=== PATIENT | male | born 1935 | race Hispanic/Latino ===

== ENCOUNTER 2017-01-28 11:35 | Emergency (ER) | payer MEDICARE, OTHER ==
[2017-01-28] MEDS ORDERED: Sodium Chloride 0.9% 1,000 ML IV ONE (12:04)
[2017-01-28 12:06] VITALS: RESP 18
[2017-01-28 12:28] LABS: BASO % 0.5 % (0.0-2.0); EOS # 0.1 K/uL (0.0-0.7); EOS % 1.1 % (0.0-4.0); HEMATOCRIT 37.8 % (35.0-51.0); LYMPH # 1.9 K/uL (1.0-4.3); LYMPH % 24.4 % (20.0-40.0); MEAN CELL VOLUME 93.8 fL (80.0-94.0); MEAN CORPUSCULAR HEMOGLOBIN 30.6 pg (27.0-31.0); MEAN CORPUSCULAR HGB CONC 32.6 g/dL (33.0-37.0); MEAN PLATELET VOLUME 8.6 fL (7.2-11.7); MONO # 0.5 K/uL (0.0-0.8); MONO % 6.8 % (0.0-10.0); RED CELL DISTRIBUTION WIDTH 13.3 % (11.5-14.5); WHITE BLOOD COUNT 7.9 K/uL (4.8-10.8)
[2017-01-28 12:36] LABS: INR 1.1
--- NOTE | 2017-01-28 12:39 | C.PDOC ---
History Of Present Illness 81 year old patient, with a past medical history of hypertension and hypercholesterolemia, presents to the ED complaining of dizziness for the past week. Patient states he feels dizzy when he is walking. It causes him to feel off balance. Patient denies headache, numbness, weakness, visual changes, shortness of breath, chest pain, nausea, vomiting, change in appetite, change in medications, or passing out. Patient was seen by his PMD today and sent him to the ED for further evaluation. Time Seen by Provider: 01/28/17 11:59 Chief Complaint (Nursing): Dizziness/Lightheaded History Per: Patient History/Exam Limitations: no limitations Onset/Duration Of Symptoms: Other (1 week) Current Symptoms Are (Timing): Still Present Activity At Onset Of Symptoms: Walking Associated Symptoms Preceding Syncopal Episode: No Predromal Symptoms (Sudden Onset) Fall Associated With With Symptoms: No Severity: Mild Recent travel outside of the [place]: No Past Medical History Reviewed: Historical Data, Nursing Documentation, Vital Signs Vital Signs: Last Vital Signs Temp 98.1 F 01/28/17 14:01 Pulse 58 L 01/28/17 14:01 Resp 18 01/28/17 14:01 BP 157/71 H 01/28/17 14:01 Pulse Ox 99 01/28/17 14:01 - Medical History PMH: HTN, Hypercholesterolemia Family History: States: Unknown Family Hx - Social History Hx Alcohol Use: No Hx Substance Use: No - Immunization History Hx Tetanus Toxoid Vaccination: No Hx Influenza Vaccination: No Review Of Systems Except As Marked, All Systems Reviewed And Found Negative. Cardiovascular: Negative for: Chest Pain Respiratory: Negative for: Shortness of Breath Gastrointestinal: Negative for: Nausea, Vomiting Neurological: Positive for: Dizziness. Negative for: Weakness, Numbness, Altered Mental Status, Headache, Other (syncope) Physical Exam - Physical Exam Appears: Non-toxic, No Acute Distress Skin: Warm, Dry Head: Atraumatic, Normacephalic Eye(s): bilateral: Normal Inspection, EOMI, Other ((-)nystagmus) Ear(s): Bilateral: Normal Nose: Normal Oral Mucosa: Moist Throat: Normal Neck: Normal ROM, Supple Chest: Symmetrical Cardiovascular: Rhythm Regular Respiratory: Normal Breath Sounds, No Rales, No Rhonchi, No Wheezing Gastrointestinal/Abdominal: Soft, No Tenderness, Other (obese) Back: Normal Inspection, No CVA Tenderness Extremity: Normal ROM Neurological/Psych: Oriented x3, Normal Speech, Normal Cognition, Normal Cranial Nerves, No Cerebellar Signs, Normal Motor, Normal Sensation Gait: Steady ED Course And Treatment - Laboratory Results Result Diagrams: 01/28/17 12:13 01/28/17 12:13 Lab Interpretation: No Acute Changes ECG: Interpreted By Me, Viewed By Me ECG Rhythm: Sinus Bradycardia ECG Interpretation: No Acute Changes Rate From EC (bpm) O2 Sat by Pulse Oximetry: 98 (room air) Pulse Ox Interpretation: Normal - Radiology CXR: Read By Radiologist (Benton Altamirano MD) CXR Interpretation: Yes: No Acute Disease - CT Scan/US Head CT Other Rad Studies (CT/US): Read By Radiologist (Benton Altamirano MD), Radiology Report Reviewed CT/US Interpretation: PROCEDURE: CT HEAD WITHOUT CONTRAST. HISTORY: dizziness for one week. COMPARISON: None available. TECHNIQUE: Axial computed tomography images were obtained through the head/brain without intravenous contrast. Radiation dose: Total exam DLP = 993.76 mGy-cm. This CT exam was performed using one or more of the following dose reduction techniques: Automated exposure control, adjustment of the mA and/or kV according to patient size, and/or use of iterative reconstruction technique. FINDINGS: HEMORRHAGE: No intracranial hemorrhage. BRAIN: Low-attenuation area at adjacent to the anterior horn of the left lateral ventricle likely lacune or infarct. Symmetrical periventricular small vessel disease. Age related senescent change. VENTRICLES: Unremarkable. No hydrocephalus. CALVARIUM: Unremarkable. PARANASAL SINUSES: Unremarkable as visualized. No significant inflammatory changes. MASTOID AIR CELLS: Unremarkable as visualized. No inflammatory changes. OTHER FINDINGS: None. 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 No evidence of acute parenchymal hemorrhage or other pathologic process. Medical Decision Making Medical Decision Making: Impression: 81 y/o male with dizziness for one week, intermittent episodes Plan: * EKG * Head CT * Labs * Chest x-ray * Antivert, IV fluids Progress: EKG obtained and reviewed with no acute changes Head CT shows no evidence of acute parenchymal hemorrhage or other pathologic process. Patient remained afebrile, alert and oriented in no distress. Upon reevaluation patient reports feeling better and dizziness has resolved. Patient is ambulatory in ED with steady gait and no discomfort. Patient stable and agrees to plan for discharge, he does not wish to stay in hospital. Will discharge with Rx and advise follow up with PCP or return for any worsening symptoms Disposition Counseled Patient/Family Regarding: Diagnosis, Need For Followup, Rx Given - Disposition Referrals: Benny Holland MD [Staff Provider] - Disposition: HOME/ ROUTINE Disposition Time: 13:20 Condition: IMPROVED Additional Instructions: Your prescription was sent to pharmacy Please take Antivert every 8 hours as needed for dizziness Your labs and CT scan were normal Follow up with your primary medical doctor Return to the emergency department at any time if symptoms persist or worsen. Prescriptions: Meclizine [Meclizine*] 25 mg PO Q6 #30 tab Instructions: Dizziness (ED) - POA Present On Arrival: None - Clinical Impression Clinical Impression: Dizziness - PA / HOUSE RN / Resident Statement MD/DO has reviewed & agrees with the documentation as recorded. - Scribe Statement The provider has reviewed the documentation as recorded by the Scribe Jo Marina All medical record entries made by the Scribe were at my direction and personally dictated by me. I have reviewed the chart and agree that the record accurately reflects my personal performance of the history, physical exam, medical decision making, and the department course for this patient. I have also personally directed, reviewed, and agree with the discharge instructions and disposition.
[2017-01-28 12:47] LABS: CHLORIDE 101 mmol/L (98-107); POTASSIUM 4.5 mmol/L (3.6-5.2); SODIUM 142 mmol/L (132-148)
[2017-01-28 12:50] LABS: ALB/GLOB RATIO 1.3 (1.0-2.1); ALKALINE PHOSPHATASE 50 U/L (38-126); ALT/SGPT 27 U/L (21-72); AST/SGOT 29 U/L (17-59); BILIRUBIN,TOTAL 0.5 mg/dL (0.2-1.3); BLOOD UREA NITROGEN 28 mg/dL (9-20); CARBON DIOXIDE 29 mmol/L (22-30); GFR AFRICAN-AMERICAN > 60; GLUCOSE,RANDOM 80 mg/dL (75-110); TOTAL PROTEIN 7.2 g/dL (6.3-8.3)
[2017-01-28 12:51] LABS: CALCIUM 8.5 mg/dl (8.6-10.4)
--- NOTE | 2017-01-28 13:27 | RAD ---
PROCEDURE: CHEST RADIOGRAPH, 1 VIEW. Portable study 13:14. HISTORY: Palpations COMPARISON: 07/09/2016. FINDINGS: LUNGS: Clear. PLEURA: No pneumothorax or pleural fluid seen. CARDIOVASCULAR: Normal. OSSEOUS STRUCTURES: No significant abnormalities. VISUALIZED UPPER ABDOMEN: Normal. OTHER FINDINGS: None. IMPRESSION: No active disease. No acute/significant interval changes.
[2017-01-28 14:02] VITALS: BP 157/71; PULSE 58; TEMP 98.1
[2017-01-28 18:15] VITALS: O2SAT 98
--- NOTE | 2017-01-31 07:44 | CARD ---
APPROVED REPORT EKG Measurement Heart [id number] <Conclusion> Sinus bradycardia Junctional ST depression, probably normal Borderline ECG
== END 2017-01-28 14:00 | disposition home or self-care (01) ==
LOC: C.ER 11:35
DX: R42 Dizziness and giddiness (principal)
CPT/HCPCS: 70450; 71010; 80053; 82948; 85025; 85610; 85730; 96360; 99285; J7040

== ENCOUNTER 2018-05-20 16:34 | Emergency (ER) | payer MEDICARE, OTHER ==
[2018-05-20 16:45] VITALS: BP 171/75; PULSE 66; RESP 18; TEMP 98.4; O2SAT 99
--- NOTE | 2018-05-20 17:27 | C.PDOC ---
Time Seen by Provider: 05/20/18 16:52 Chief Complaint (Nursing): Upper Extremity Problem/Injury Past Medical History Vital Signs: Last Vital Signs Temp 98.4 F 05/20/18 16:41 Pulse 66 05/20/18 16:41 Resp 18 05/20/18 16:41 BP 171/75 H 05/20/18 16:41 Pulse Ox 99 05/20/18 16:41 - Medical History PMH: HTN, Hypercholesterolemia Family History: States: Unknown Family Hx - Social History Hx Alcohol Use: No Hx Substance Use: No - Immunization History Hx Tetanus Toxoid Vaccination: No Hx Influenza Vaccination: No Hx Pneumococcal Vaccination: No ED Course And Treatment O2 Sat by Pulse Oximetry: 99 - Other Rad R ribs X-Ray: Interpreted by Me (no rib fx) R elbow X-Ray: Interpreted by Me (no fx/disloc) Medical Decision Making Medical Decision Making: small lateral R elbow hematoma resolving not infected minor rib contusion minimal discomfort no fx Disposition Doctor Will See Patient In The: Office Counseled Patient/Family Regarding: Studies Performed, Diagnosis - Disposition Disposition: HOME/ ROUTINE Disposition Time: 17:26 Condition: GOOD - Clinical Impression Clinical Impression: Fall
--- NOTE | 2018-05-21 10:13 | RAD ---
Date of service: 05/20/2018 PROCEDURE: Radiographs of the Chest and Right Ribs. HISTORY: fall R lateral ribs R side 3 days ago, mid-ax line COMPARISON: Chest radiograph dated 01/28/2017 TECHNIQUE: Frontal radiograph of the chest and multiple oblique radiographs of the right ribs were obtained. FINDINGS: RIGHT RIBS: No acute fracture or focal lesion visualized. LUNGS: Clear. PLEURA: No pneumothorax or pleural fluid. CARDIOVASCULAR: Atherosclerotic aortic calcifications. Cardiomediastinal silhouette unchanged. OTHER FINDINGS: None. IMPRESSION: Unremarkable radiographs of the chest and right ribs. No right rib fracture.
--- NOTE | 2018-05-21 10:16 | RAD ---
Date of service: 05/20/2018 PROCEDURE: Radiographs of the right elbow. HISTORY: R elbow contusion, hematoma R lateral elbow COMPARISON: No prior. FINDINGS: BONES: No acute fracture. JOINTS: Degenerative changes. SOFT TISSUES: Mild posterior soft tissue swelling. JOINT EFFUSION: None. OTHER FINDINGS: Triceps tendon enthesophyte. IMPRESSION: No demonstrated fracture or dislocation. Degenerative changes.
== END 2018-05-20 17:33 | disposition home or self-care (01) ==
LOC: C.ER 16:34
DX: S20.211A Contusion of right front wall of thorax, initial encounter (principal); S50.01XA Contusion of right elbow, initial encounter; W18.30XA Fall on same level, unspecified, initial encounter